=== PATIENT | female | born 1955 | race Hispanic/Latino ===

== ENCOUNTER 2019-03-08 23:15 | Emergency (ER) | payer MEDICARE ==
[2019-03-09] MEDS ORDERED: NORCO 5/325 PO ONE (02:37)
[2019-03-09] MEDS ORDERED: AUGMENTIN 875 MG PO ONE (02:37)
[2019-03-09] MEDS ORDERED: BOOSTRIX IM ONE (02:37)
[2019-03-09] MEDS ORDERED: XYLOCAINE 1%/ EPI 1:100,000 INFILTRATI NR (03:00)
--- NOTE | 2019-03-09 03:25 | Cat Scan Report ---
CT maxillofacial without contrast INDICATION : MAIN: PLAYING WITH FRIENDS DOG AND DOG HIT HER IN THE FACE. TECHNIQUE: Axial imaging performed through the face with reconstructed images also reviewed. All CT scans at this location are performed using CT dose reduction for ALARA by means of automated exposur e control. COMPARISON: None FINDINGS: There is a right facial laceration near the right orbit with subcutaneous gas and strandin g tracking inferiorly over the anterior wall of the right maxillary sinus. No radiopaque foreign body or fracture identified. The sinuses and mastoid air cells are clear. No other abnormality identified . IMPRESSION: Right facial laceration and soft tissue injury as above. No acute osseous abnormality. Th e orbits are normal. Signer Name: Chaka Daly MD Signed: 03/09/2019 3:21 AM Workstation Name: [id number]
--- NOTE | 2019-03-09 04:21 | Emergency Department Report ---
ED General Adult HPI - General Chief complaint: Animal Bite Stated complaint: LACERATION TO RIGHT EYE via DOG Time Seen by Provider: 03/09/19 02:21 Source: patient Mode of arrival: Ambulatory Limitations: No Limitations - History of Present Illness Initial comments: tp presents for dog claw puncture wound to right cheek periorbital area bleeding controlled on scene with bandaid, there is no vision loss no swelling . last tetanus unknown. Onset/Timin -: hour(s) Location: face Radiation: non-radiation Severity scale (0 -10): 6 Quality: sharp Consistency: constant Improves with: medication Worsens with: none Treatments Prior to Arrival: none - Related Data Previous Rx's Medication Instructions Recorded Last Taken Type Amoxicillin/Potassium Clav 1 each PO BID 10 Days #20 tablet 03/09/19 Unknown Rx [Augmentin 875-125 Tablet] Ketotifen Fumarate [Zaditor] 2 drops OP BID #5 ml 03/09/19 Unknown Rx Polymyxin B Sulf/Trimethoprim 2 drops OP Q4H 10 Days #10 ml 03/09/19 Unknown Rx [Polytrim Eye Drops] traMADol [Ultram] 50 mg PO Q6HR PRN #12 tablet 03/09/19 Unknown Rx Allergies Allergy/AdvReac Type Severity Reaction Status Date / Time codeine AdvReac Vomiting Verified 03/08/19 23:52 ED Review of Systems ROS: Stated complaint: LACERATION TO RIGHT EYE via DOG Other details as noted in HPI Constitutional: other (periorbital/right cheek laceration). denies: chills, fever Eyes: denies: eye pain, eye discharge, vision change ENT: denies: ear pain, throat pain Respiratory: no symptoms reported Cardiovascular: denies: chest pain, palpitations Endocrine: no symptoms reported Gastrointestinal: denies: abdominal pain, nausea, vomiting, diarrhea Genitourinary: denies: urgency, dysuria, discharge Musculoskeletal: denies: back pain, joint swelling, arthralgia Skin: other (abrasions multiple ). denies: rash, lesions Neurological: denies: headache, weakness, paresthesias Psychiatric: denies: anxiety, depression Hematological/Lymphatic: denies: easy bleeding, easy bruising ED Past Medical Hx - Past Medical History Previous Medical History?: Yes Hx Hypertension: Yes Additional medical history: Thyroid disease, Obesity - Surgical History Past Surgical History?: Yes Additional Surgical History: Anterior cervical fusion, Left knee menisectomy,. Tonsillectomy, Tubal Ligation, - Social History Smoking Status: Never Smoker Substance Use Type: Alcohol - Medications Home Medications: Home Medications Medication Instructions Recorded Confirmed Last Taken Type Amoxicillin/Potassium Clav 1 each PO BID 10 Days #20 tablet 03/09/19 Unknown Rx [Augmentin 875-125 Tablet] Ketotifen Fumarate [Zaditor] 2 drops OP BID #5 ml 03/09/19 Unknown Rx Polymyxin B Sulf/Trimethoprim 2 drops OP Q4H 10 Days #10 ml 03/09/19 Unknown Rx [Polytrim Eye Drops] traMADol [Ultram] 50 mg PO Q6HR PRN #12 tablet 03/09/19 Unknown Rx ED Physical Exam - General Limitations: No Limitations General appearance: alert, in no apparent distress - Head Head exam: Present: normocephalic, normal inspection - Expanded Head Exam Expanded Head exam: Present: laceration (right periorbital- right cheek ), abrasion, contusion. Absent: hematoma, racoon eyes, delgadillo's sign, general tenderness, tenderness of temporal artery, CSF rhinorrhea, CSF otorrhea - Eye Eye exam: Present: normal appearance, PERRL, EOMI, periorbital tenderness. Absent: conjunctival injection, nystagmus Pupils: Present: normal accommodation - Expanded Eye Exam Expanded Eyelids: Normal Inspection: Right Sclera/Conjunctival: Normal Inspection: Bilateral Anterior chamber: Normal Inspection: Bilateral Posterior chamber: Deferred: Bilateral Visual acuity (R) = 20/: 40 Visual acuity (L) = 20/: 40 With correction: No - ENT ENT exam: Present: normal orophraynx, mucous membranes moist, TM's normal bilaterally, normal external ear exam - Neck Neck exam: Present: normal inspection, full ROM. Absent: tenderness, meningismus, lymphadenopathy, thyromegaly - Respiratory Respiratory exam: Present: normal lung sounds bilaterally. Absent: respiratory distress, wheezes, stridor, chest wall tenderness - Cardiovascular Cardiovascular Exam: Present: regular rate, normal heart sounds - GI/Abdominal GI/Abdominal exam: Present: soft, normal bowel sounds. Absent: distended, tenderness, bruit, hernia - Rectal Rectal exam: Present: deferred - Extremities Exam Extremities exam: Present: normal inspection, full ROM, normal capillary refill. Absent: tenderness, pedal edema, joint swelling, calf tenderness - Back Exam Back exam: Present: normal inspection, full ROM. Absent: tenderness, CVA tenderness (R), CVA tenderness (L), muscle spasm, paraspinal tenderness, rash noted - Neurological Exam Neurological exam: Present: alert, oriented X3, CN II-XII intact, normal gait. Absent: motor sensory deficit - Expanded Neurological Exam Expanded Patient oriented to: Present: person, place, time Speech: Present: fluid speech Cranial nerves: EOM's Intact: Normal, Gag Reflex: Normal, Tongue Deviation: Normal, Nystagmus: Normal, Facial Sensation: Normal Motor strength exam: RUE: 5, LUE: 5, RLE: 5, LLE: 5 Best Eye Response ([place]): (4) open spontaneously Best Motor Response ([place]): (3) flexion to pain Best Verbal Response ([place]): (5) oriented [place] Total: 12 - Psychiatric Psychiatric exam: Present: normal affect, normal mood - Skin Skin exam: Present: warm, dry, intact, normal color, other (laceration as above ). Absent: rash ED Course Vital Signs 03/08/19 03/08/19 03/09/19 23:27 23:52 03:08 Temperature 97.8 F Pulse Rate 75 73 Respiratory 18 20 Rate Blood Pressure 76/41 Blood Pressure 147/80 [Left] O2 Sat by Pulse 95 100 Oximetry - Laceration /Wound Repair Right Medial Cheek Wound Location: face Wound Length (cm): 2 Wound's Depth, Shape: superficial, irregular Wound Explored: clean Irrigated w/ Saline (ccs): 60 Betadine Prep?: Yes Anesthesia: Lidocaine w/ Epi (2) Wound Debrided: minimal Wound Repaired With: sutures Suture Size/Type: 4:0 (vycryl) Number of Sutures: 7 Sterile Dressing Applied?: No Progress: S [employer] right periorbital laceration as at right lateral nose CT normal mandibular fracture no nasal fracture mild sinus bled no muscle entrapment patient is EOMI, PERRLA, Conjunctae clear, irregular flap site cleaned with sterile saline and Betadine solution and anesthesia with 1% lidocaine with epi 1 mL wound closed with vycryl 4.0 x 7 sutures edges well ap proximated, all bleeding is controlled pt given wound care instructions , will follow up with pcp in 2 days for wound cyeck and 7-10 days if sutures not complete dissolved , pt tolerated procedure with minimal distress. ED Medical Decision Making - Radiology Data Radiology results: report reviewed, image reviewed Ordering Physician: SIRIA ADORNO NP Date of Service: 03/09/19 Procedure(s): CT facial bones wo con Accession Number(s): [id number] cc: SIRIA ADORNO NP CT maxillofacial without contrast INDICATION : MAIN: PLAYING WITH FRIENDS DOG AND DOG HIT HER IN THE FACE. TECHNIQUE: Axial imaging performed through the face with reconstructed images also reviewed. All CT scans at this location are performed using CT dose reduction for ALARA by means of automated exposure control. COMPARISON: None FINDINGS: There is a right facial laceration near the right orbit with subcutaneous gas and stranding tracking inferiorly over the anterior wall of the right maxillary sinus. No radiopaque foreign body or fracture identified. The sinuses and mastoid air cells are clear. No other abnormality identified. IMPRESSION: Right facial laceration and soft tissue injury as above. No acute osseous abnormality. The orbits are normal. Signer Name: Chaka Daly MD Signed: 03/09/2019 3:21 AM Workstation Name: [id number] Transcribed By: ELGIN Dictated By: Chaka Daly MD Electronically Authenticated By: Chaka Daly MD Signed Date/Time: 03/09/19320 DD/ 7 TD/TT: - Medical Decision Making laceration repair complete see procedure note, all bleeding is controlled pt tolerated procedure with minimal distress all bleeding is controlled pt given wound care instructions will follow up with pcp in 2 days and 7-10 days, return to emergency if symptoms worsen, will dc to home with rx for augmentin, zaditor, ultram. pt dc'd to home via pov with at this time pt is ambulatory with steady gait , nad Critical care attestation.: If time is entered above; I have spent that time in minutes in the direct care of this critically ill patient, excluding procedure time. ED Disposition Clinical Impression: Facial laceration Qualifiers: Encounter type: initial encounter Qualified Code(s): S01.81XA - Laceration without foreign body of other part of head, initial encounter Disposition: DC-01 TO HOME OR SELFCARE Is pt being admited?: No Does the pt Need Aspirin: No Condition: Stable Instructions: Animal Bite (ED) Additional Instructions: follow up with your docotor in 2-3 days for wound check and 7-10 for wound check and suture removal if not dissolved, return to ed if symptoms worsen Prescriptions: Amoxicillin/Potassium Clav [Augmentin 875-125 Tablet] 1 each PO BID 10 Days #20 tablet Polymyxin B Sulf/Trimethoprim [Polytrim Eye Drops] 2 drops OP Q4H 10 Days #10 ml traMADol [Ultram] 50 mg PO Q6HR PRN #12 tablet PRN Reason: Pain Ketotifen Fumarate [Zaditor] 2 drops OP BID #5 ml Referrals: PRIMARY CARE, [Referring] - 3-5 Days Forms: Work/School Release Form(ED) Time of Disposition: 04:33
[2019-03-09] MEDS ORDERED: ZOFRAN ODT PO ONE (04:29)
[2019-03-09] MEDS ORDERED: ZOFRAN ODT ONE (04:31)
[2019-03-09 04:41] VITALS: BP 132/79
== END 2019-03-09 05:02 | disposition home or self-care (01) ==
LOC: ED 23:15
DX: S01.111A Laceration without foreign body of right eyelid and periocular area, initial encounter (principal); S01.411A Laceration without foreign body of right cheek and temporomandibular area, initial encounter; I10 Essential (primary) hypertension; E07.9 Disorder of thyroid, unspecified; E66.9 Obesity, unspecified; Z68.37 Body mass index [BMI] 37.0-37.9, adult; Z90.89 Acquired absence of other organs; Z88.5 Allergy status to narcotic agent; Z98.51 Tubal ligation status; Z79.899 Other long term (current) drug therapy; W54.0XXA Bitten by dog, initial encounter; Y93.89 Activity, other specified; Y92.511 Restaurant or cafe as the place of occurrence of the external cause; Y99.8 Other external cause status
CPT/HCPCS: 70486; 90471; 90715; Q0162